=== PATIENT | female | born 1975 ===

== ENCOUNTER 2016-05-01 13:41 | Emergency (ER) | payer OTHER ==
[2016-05-01 14:21] LABS: SPECIFIC GRAVITY 1.015 (1.001-1.030); URINE BILIRUBIN NEGATIVE (NEGATIVE); URINE BLOOD 4+ (NEGATIVE); URINE GLUCOSE (UA) NEGATIVE (NEGATIVE); URINE NITRITE NEGATIVE (NEGATIVE); URINE PROTEIN TRACE (NEGATIVE); URINE UROBILINOGEN NORMAL (0-1 mg/dl)
[2016-05-01 14:22] LABS: URINE COLOR LIGHT YELLOW
[2016-05-01 14:23] LABS: URINE APPEARANCE SLIGHTLY HAZY; URINE LEUKOCYTE ESTERASE 2+ (NEGATIVE)
[2016-05-01 14:28] LABS: HCG,QUALITATIVE URINE NEGATIVE
[2016-05-01 14:32] LABS: URINE RBC 0-1 /hpf; URINE WBC 80-100 /hpf
[2016-05-01 14:33] LABS: URINE BACTERIA 1+
[2016-05-03 15:50] LABS: CHLAMYDIA BD Negative (Negative); N.GONORRHOEAE BD Negative (Negative); SOURCE Urine (())
== END 2016-05-01 15:47 | disposition home or self-care (01) ==
LOC: ED 13:41
DX: N39.0 Urinary tract infection, site not specified (principal); D25.9 Leiomyoma of uterus, unspecified